=== PATIENT | female | born 1980 | race Caucasian/White ===

== ENCOUNTER 2022-01-28 08:29 | Outpatient (CLI) | payer BC ==
[2022-01-28] MEDS ORDERED: iohexol 300mg/ml 100ml inj. ONE (08:38)
== END 2022-01-28 23:59 | disposition home or self-care (01) ==
LOC: RAD 08:29
PROVIDERS: ATTEND Family Medicine
DX: R19.00 Intra-abdominal and pelvic swelling, mass and lump, unspecified site (principal); Z90.49 Acquired absence of other specified parts of digestive tract
CPT/HCPCS: 74170; J3490; Q9967